=== PATIENT | female | born 1965 | race Caucasian/White ===

== ENCOUNTER 2020-11-21 01:32 | Inpatient (IN) | payer BC ==
[~2020-11-21] VITALS: Ht 154.9 cm; Wt 113.4 kg
[2020-11-21 03:16] LABS: HEMOGLOBIN 12.6 gm/dl (12.3-15.3); RED BLOOD COUNT 4.59 M/UL (4.00-5.10); WHITE BLOOD COUNT 10.5 K/UL (4.5-11.0)
[2020-11-21 03:30] LABS: BUN/CREATININE RATIO 29 (0-10)
[2020-11-21] MEDS ORDERED: LOW DOSE ASPIRI81 MG PO (09:03)
[2020-11-21] MEDS ORDERED: LISINOPRIL20 MG PO (09:04)
[2020-11-21] MEDS ORDERED: CRESTOR5 MG PO (09:04)
[2020-11-21] MEDS ORDERED: COZAAR50 MG PO (09:07)
[2020-11-21] MEDS ORDERED: JANUVIA100 MG PO (09:07)
[2020-11-21] MEDS ORDERED: PROAIR HFA8.5 GM INH (09:08)
[2020-11-21] MEDS ORDERED: PSEUDOEPHEDRINE30 MG PO (09:09)
[2020-11-21] MEDS ORDERED: METOPROLOL SUCC25 MG PO (09:09)
[2020-11-21] MEDS ORDERED: DEXILANT30 MG PO (09:11)
[2020-11-21] MEDS ORDERED: VITAMIN D325 MCG PO (09:12)
[2020-11-22 03:31] LABS: HEMOGLOBIN 11.2 gm/dl (12.3-15.3); RED BLOOD COUNT 4.17 M/UL (4.00-5.10)
[2020-11-22 03:34] LABS: WHITE BLOOD COUNT 7.5 K/UL (4.5-11.0)
[2020-11-22 03:42] LABS: BUN/CREATININE RATIO 17 (0-10)
== END 2020-11-23 14:33 | disposition home or self-care (01) | DRG 389 ==
LOC: ER1 01:32 → CDU 05:36 → PROG CARE 09:41 → M/S 17:56
PROVIDERS: Internal Medicine; ADMIT Internal Medicine
DX: K56.51 Intestinal adhesions [bands], with partial obstruction (principal); Z68.42 Body mass index [BMI] 45.0-49.9, adult; G43.909 Migraine, unspecified, not intractable, without status migrainosus; K21.9 Gastro-esophageal reflux disease without esophagitis; I10 Essential (primary) hypertension; E78.5 Hyperlipidemia, unspecified; E11.9 Type 2 diabetes mellitus without complications; Z20.822 Contact with and (suspected) exposure to COVID-19; K58.1 Irritable bowel syndrome with constipation; Z90.710 Acquired absence of both cervix and uterus; Z90.49 Acquired absence of other specified parts of digestive tract; Z79.82 Long term (current) use of aspirin; Z88.2 Allergy status to sulfonamides; Z79.899 Other long term (current) drug therapy; Z88.6 Allergy status to analgesic agent; Z88.5 Allergy status to narcotic agent; Z88.8 Allergy status to other drugs, medicaments and biological substances; E66.9 Obesity, unspecified
CPT/HCPCS: 36415; 80048; 80053; 81001; 82962; 83690; 85025; 96372; 96374; 96375; 96376; 99285; J1650; J2270; J2405; J3010; J7030; Q9967; U0002

== ENCOUNTER 2021-02-08 19:55 | Emergency (ER) | payer BC ==
[~2021-02-08 19:55] MED LIST: COZAAR50 MG PO; CRESTOR5 MG PO; DEXILANT30 MG PO; JANUVIA100 MG PO; LISINOPRIL20 MG PO; LOW DOSE ASPIRI81 MG PO; METOPROLOL SUCC25 MG PO; PROAIR HFA8.5 GM INH; PSEUDOEPHEDRINE30 MG PO; VITAMIN D325 MCG PO
[2021-02-08 20:38] LABS: HEMOGLOBIN 12.4 gm/dl (12.3-15.3); RED BLOOD COUNT 4.48 M/UL (4.00-5.10); WHITE BLOOD COUNT 11.5 K/UL (4.5-11.0)
[2021-02-08 21:12] LABS: BUN/CREATININE RATIO 17 (0-10)
== END 2021-02-09 00:32 ==
LOC: ER1 19:55
PROVIDERS: Physician Assistant
DX: K56.609 Unspecified intestinal obstruction, unspecified as to partial versus complete obstruction (principal); R07.9 Chest pain, unspecified; E78.5 Hyperlipidemia, unspecified; K21.9 Gastro-esophageal reflux disease without esophagitis; F17.290 Nicotine dependence, other tobacco product, uncomplicated; Z90.49 Acquired absence of other specified parts of digestive tract; Z90.710 Acquired absence of both cervix and uterus; Z88.5 Allergy status to narcotic agent; Z88.2 Allergy status to sulfonamides; Z88.8 Allergy status to other drugs, medicaments and biological substances
CPT/HCPCS: 71045; 80053; 81001; 82550; 82553; 83690; 83874; 84484; 85025; 93005; 96374; 96375; 96376; 99285; C9113; J2270; J2405; J7030; Q9967